=== PATIENT | female | born 1960 | race Two or more races ===

== ENCOUNTER 2025-05-23 11:36 | Inpatient (IN) | payer MEDICARE, MEDICAID ==
[~2025-05-23] VITALS: Ht 149.9 cm; Wt 66.8 kg
--- NOTE | 2025-05-23 12:01 | ED.PDOC ---
HPI Comments This is a 65 year-old female who presents to the ED via EMS with a chief complaint of L sided chest pain, palpitations, and generalized body pain. Patient states symptoms are similar as to when she was diagnosed with Pneumonia in March. Patient has a Hx of COPD and HTN. Patient has no further complaints or modifying factors at this time. Patient denies any fever, chills, SOB, cough, or N/V/D. 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 History Family History Family History: Unknown Social History Smoker: Non-Smoker Alcohol: Denies ETOH Use Drugs: Denies Drug Use Lives In: Home Constitutional: reports: others (body pain ); denies: chills, diaphoresis, fatigue, fever, malaise, sweats, weakness EENTM: denies: blurred vision, double vision, ear bleeding, ear discharge, ear drainage, ear pain, ear ringing, eye pain, eye redness, hearing loss, mouth pain, mouth swelling, nasal discharge, nose bleeding, nose congestion, nose pain, photophobia, tearing, throat pain, throat swelling, voice changes, others Respiratory: denies: cough, hemoptysis, orthopnea, SOB at rest, shortness of breath, SOB with excertion, stridor, wheezing, others Cardiovascular: reports: chest pain, palpitations; denies: dizzy spells, diaphoresis, Dyspnea on exertion, edema, irregular heart beat, left arm pain, lightheadedness, PND, syncope, others Gastrointestinal: denies: abdomen distended, abdominal pain, blood streaked bowels, constipated, diarrhea, dysphagia, difficulty swallowing, hematemesis, melena, nausea, poor appetite, poor fluid intake, rectal bleeding, rectal pain, vomiting, others Genitourinary: denies: abnormal vagina bleeding, burning, dyspareunia, dysuria, flank pain, frequency, hematuria, incontinence, pain, , vagina discharge, urgency, others Neurological: denies: dizziness, fainting, headache, left sided numbness, left sided weakness, numbness, paresthesia, pre-existing deficit, right sided numbness, right sided weakness, seizure, speech problems, tingling, tremors, weakness, others Musculoskeletal: denies: back pain, gout, joint pain, joint swelling, muscle pa in, muscle stiffness, neck pain, others Integumetry: denies: bruises, change in color, change in hair/nails, dryness, laceration, lesions, lumps, rash, wounds, others Allergic/Immunocompromised: denies: Difficulty Healing, Frequent Infections, Hives, Itching, others Hematologic/Lymphatic: denies: anemia, blood clots, easy bleeding, easy bruising, swollen glands, others Endocrine: denies: excessive hunger, excessive sweating, excessive thirst, excessive urination, flushing, intolerance to cold, intolerance to heat, unexplained weight gain, unexplained weight loss, others Psychiatric: denies: anxiety, bipolar disorder, depression, hopeless, panic disorder, schizophrenia, sleepless, suicidal, others All Other Systems: Reviewed and Negative Physical Exam General Appearance: Moderate Distress HEENT: Normal ENT Inspection, Pharynx Normal, TMs Normal Neck: Full Range of Motion, Non-Tender, Normal, Normal Inspection Respiratory: Chest Non-Tender, Lungs Clear, No Accessory Muscle Use, No Respiratory Distress, Normal Breath Sounds Cardiovascular: No Edema, No JVD, No Murmur, No Gallop, Normal Peripheral Pulses, Regular Rate/Rhythm Breast Exam: Deferred Gastrointestinal: No Organomegaly, Non Tender, No Pulsatile Mass, Normal Bowel Sounds, Soft Genitalia: Deferred Pelvic: Deferred Rectal: Deferred Extremities: No calf tenderness, Normal capillary refill, Normal inspection, Normal range of motion, Non-tender, No pedal edema Musculoskeletal : Apperance: Normal Neurologic: Alert, assistant inventory manager II-XII nml as Tested, No Motor Deficits, Normal Affect, Normal Mood, No Sensory Deficits Cerebellar Function: NOT DONE Reflexes: NOT DONE Skin: Dry, Normal Color, Warm Peripheral Pulses: 3+ Radial (R), 3+ Radial (L) Lymphatic: No Adenopathy Was a procedure done? Was a procedure done?: No CP Differential Dx Differential Diagnosis: A-fib, A-Flutter, Angina, Anxiety / Panic Attack, Atrial Dysrhythmia, Electrolyte Disorder Differential Diagnosis: HTN Essential Differential Diagnosis: Angina, Chest Wall Pain, Gastritis, Pneumonia X-Ray, Labs, Meds, VS Vital Signs Date Time Temp Pulse Resp B/P (MAP) Pulse Ox O2 Delivery O2 Flow Rate FiO2 05/23/25 11:40 84 Lab Test 05/23/25 13:59 Range/Units White Blood Count 6.6 4.4-10.8 10^3/uL Red Blood Count 4.55 4.0-5.20 10^6/uL Hemoglobin 14.3 12.2-16.2 g/dL Hematocrit 42.2 36.0-46.0 % Mean Corpuscular Volume 92.6 80.0-100.0 fL Mean Corpuscular Hemoglobin 31.4 28.0-32.0 pg Mean Corpuscular Hemoglobin Concent 33.9 32.0-36.0 g/dL Red Cell Distribution Width 14.3 11.8-14.3 % Platelet Count 116 L 140-450 10^3/uL Mean Platelet Volume 9.5 6.9-10.8 fL Neutrophils (%) (Auto) 64.8 37.0-80.0 % Lymphocytes (%) (Auto) 19.6 10.0-50.0 % Monocytes (%) (Auto) 9.6 0.0-12.0 % Eosinophils (%) (Auto) 5.5 0.0-7.0 % Basophils (%) (Auto) 0.5 0.0-2.0 % Neutrophils # (Auto) 4.3 1.6-8.6 10 ^3/uL Lymphocytes # (Auto) 1.3 0.4-5.4 10 ^3/uL Monocytes # (Auto) 0.6 0-1.3 10 ^3/uL Eosinophils # (Auto) 0.4 0-0.8 10 ^3/uL Basophils # (Auto) 0 0-0.2 10 ^3/uL Nucleated Red Blood Cells 0.1 % Sodium Level 143 136-145 mmol/L Potassium Level 4.3 3.5-5.1 mmol/L Chloride Level 113 H 98-107 mmol/L Carbon Dioxide Level 25 20-31 mmol/L Anion Gap 5 5-15 Blood Urea Nitrogen 12 9-23 mg/dL Creatinine 0.85 0.550-1.02 mg/dL Glomerular Filtration Rate Calc 76 >90 mL/min BUN/Creatinine Ratio 14.1 10.0-20.0 Serum Glucose 98 74-106 mg/dL Calcium Level 9.2 8.7-10.4 mg/dL Troponin I High Sensitivity 7 </=34 ng/L Patient alert. Came in because of chest pain. Vitals stable. Answering questions. Cardiac marker within normal limits. Continues to have chest pain. WBC within normal limits pain Hemoglobin within normal limits. Explained to the patient. Continue to monitor. Time of 1ST Reevaluation: 12:31 Reevaluation 1ST: Unchanged Patient Education/Counseling: Diagnosis, Treatment Family Education/Counseling: No Family Present SEPSIS Sepsis Screen Physician Orders Electrocardigram (05/23/25 12:01) Electrocardigram (05/23/25 13:01) Electrocardigram (05/23/25 15:01) Chest Portable (05/23/25 13:49) Urinalysis (05/23/25 13:49) Vital Signs Date Time Temp Pulse Resp B/P (MAP) Pulse Ox O2 Delivery O2 Flow Rate FiO2 05/23/25 11:40 84 Laboratory Tests Test 05/23/25 13:59 White Blood Count 6.6 10^3/uL (4.4-10.8) Departure 1 Departure Time of Disposition: 16:05 Impression: Primary Impression: Chest pain of unknown etiology Disposition: ADMITTED INPATIENT Admit to: Med Surg Condition: Guarded Critical Care Note Critical Care Time?: Yes (30 min-critical care time only) Stability Stability form required: No Heart Score Heart Score: Heart Score Response (Comments) Value History Moderate Suspicious 1 EKG N/A 0 Age >65 2 Risk Factors 1 or 2 risk factors 1 Troponin Normal limit 0 Total 4 I personally scribed for TWIN JONES MD ([email or web address]) on 05/23/25 at 12:01. Electronically submitted by Ghazal Stafford ([employer] TWIN JONES MD May 23, 2025 12:01
[2025-05-23 14:12] LABS: Hematocrit 42.2 % (36.0-46.0); Hemoglobin 14.3 g/dL (12.2-16.2); Mean Corpuscular Hemoglobin 31.4 pg (28.0-32.0); Mean Corpuscular Volume 92.6 fL (80.0-100.0); Nucleated Red Blood Cells % 0.1 %
[2025-05-23 14:17] LABS: Potassium 4.3 mmol/L (3.5-5.1); Sodium 143 mmol/L (136-145)
[2025-05-23 14:18] LABS: Anion Gap 5 (5-15); Carbon Dioxide 25 mmol/L (20-31)
[2025-05-23 14:19] LABS: Calcium 9.2 mg/dL (8.7-10.4)
[2025-05-23 14:22] LABS: Chloride 113 mmol/L (98-107)
[2025-05-23 14:24] LABS: BUN/Creatinine Ratio 14.1 (10.0-20.0); Blood Urea Nitrogen 12 mg/dL (9-23); Glucose 98 mg/dL (74-106)
--- NOTE | 2025-05-23 14:27 | DVH ---
CHEST RADIOGRAPH Indication: cough Technique: Single frontal view of the chest was obtained. Comparison: None Findings: No focal consolidation. Small right pleural effusion. No pneumothorax. Mildly enlarged cardiomediastinal silhouette. IMPRESSION: Small right pleural effusion.
[2025-05-23] MEDS ORDERED: DOCUSATE SOD 100 MG CAP PO PRN (17:00)
[2025-05-23] MEDS ORDERED: NITROGLYCERIN 0.4 MG SL TAB SL PRN (17:00)
--- NOTE | 2025-05-23 17:17 | DVHHP2 ---
History of Present Illness Reason for Visit: sob/cough History of Present Illness 59-year-old female with a complex past medical history including COPD, hypertension, cirrhosis likely secondary to alcoholism (she reports sobriety for the past 18 years), recently diagnosed liver cancer (diagnosed two weeks ago at [facility]) have not gotten treatment as of yet per pt, thyroid disease, prior stomach and spine surgery, pneumonia in June 2024, and uncertain surgical history, presents with complaints of left-sided abdominal pain, neck pain, shoulder pain, chest pain, shortness of breath, and cough ongoing for three days. She notes the current symptoms feel similar to prior pneumonia episodes but denies fever. She is an active smoker and denies any recent alcohol intake. She lives in a facility with her son. Patient has limited recall of her medical and surgical history. She was brought in via paramedics and evaluated in the ED where she remained in the lobby in a wheelchair. Pulse oximetry on room air was 93%, heart rate 93 bpm. CBC was unremarkable. BMP was remarkable. Chest X-ray revealed a right pleural effusion. Given the constellation of symptoms, she will be admitted for further workup including COPD exacerbation, pneumonia rule-out, pulmonary embolism rule-out, and evaluation of abdominal pain. Past Medical History see hpi above Past Surgical History see hpi above Family History Reviewed, non-contributory to the management of this case. Past Social History Patient does smoke by history denies any recent alcohol use or drug use Review of Systems Constitutional: No: Fever, Chills, Sweats, Weakness, Malaise, Other Eyes: No: Pain, Vision change, Conjunctivae inflammation, Eyelid inflammation, Other, Redness ENT: No: Ear pain, Ear discharge, Nose pain, Nose discharge, Nose congestion, Mouth pain, Mouth swelling, Throat pain, Throat swelling, Other Respiratory: Cough, Shortness of breath, SOB with excertion; No: Dry, Wheezing, Hemoptysis, Pleuritic Pain, Sputum, Wheezing, Other Cardiovascular: Chest Pain; No: Palpitations, Orthopnea, Paroxysmal Noc. Dyspnea, Edema, Lt Headedness, Other Gastrointestinal: No: Nausea, Vomiting, Abdominal Pain, Diarrhea, Constipation, Melena, Hematochezia, Other Genitourinary: No Dysuria, No Frequency, No Incontinence, No Hematuria, No Retention, No Other Musculoskeletal: No: other, neck pain, shoulder pain, arm pain, back pain, hand pain, leg pain, foot pain Skin: No: Rash, Lesions, Jaundice, Bruising, Other Neurological: No: Weakness, Numbness, Incoordination, Change in speech, Confusion, Seizures, Other Allergies: Coded Allergies: NO KNOWN ALLERGIES (Unverified , 05/23/25) Exam Vital Signs Vital Signs Date Time Temp Pulse Resp B/P (MAP) Pulse Ox O2 Delivery O2 Flow Rate FiO2 05/23/25 11:40 84 General Appearance: Alert, Oriented X3, Cooperative, mild distress HEENT: Atraumatic, PERRLA, EOMI, Mucous membr. moist/pink Respiratory: Other (diminished throughout ) Cardiovascular: Regular rate, Normal S1, Normal S2, No murmurs Abdominal: Normal bowel sounds, Soft, No tenderness, No hepatospenomegaly, No masses Extremities: No clubbing, No cyanosis, No edema, Normal pulses, No tenderness/swelling Skin: No rashes, No breakdown, No significant lesion Neuro: Other (neuro non focal ) Labs/Xrays Chest x-ray shows right pleural effusion I reviewed labs, imaging CT scan abdomen pelvis, EKG and all diagnostic studies on this patient from ED records and the medical chart Labs Test 05/23/25 13:59 Range/Units White Blood Count 6.6 4.4-10.8 10^3/uL Red Blood Count 4.55 4.0-5.20 10^6/uL Hemoglobin 14.3 12.2-16.2 g/dL Hematocrit 42.2 36.0-46.0 % Mean Corpuscular Volume 92.6 80.0-100.0 fL Mean Corpuscular Hemoglobin 31.4 28.0-32.0 pg Mean Corpuscular Hemoglobin Concent 33.9 32.0-36.0 g/dL Red Cell Distribution Width 14.3 11.8-14.3 % Platelet Count 116 L 140-450 10^3/uL Mean Platelet Volume 9.5 6.9-10.8 fL Neutrophils (%) (Auto) 64.8 37.0-80.0 % Lymphocytes (%) (Auto) 19.6 10.0-50.0 % Monocytes (%) (Auto) 9.6 0.0-12.0 % Eosinophils (%) (Auto) 5.5 0.0-7.0 % Basophils (%) (Auto) 0.5 0.0-2.0 % Neutrophils # (Auto) 4.3 1.6-8.6 10 ^3/uL Lymphocytes # (Auto) 1.3 0.4-5.4 10 ^3/uL Monocytes # (Auto) 0.6 0-1.3 10 ^3/uL Eosinophils # (Auto) 0.4 0-0.8 10 ^3/uL Basophils # (Auto) 0 0-0.2 10 ^3/uL Nucleated Red Blood Cells 0.1 % Sodium Level 143 136-145 mmol/L Potassium Level 4.3 3.5-5.1 mmol/L Chloride Level 113 H 98-107 mmol/L Carbon Dioxide Level 25 20-31 mmol/L Anion Gap 5 5-15 Blood Urea Nitrogen 12 9-23 mg/dL Creatinine 0.85 0.550-1.02 mg/dL Glomerular Filtration Rate Calc 76 >90 mL/min BUN/Creatinine Ratio 14.1 10.0-20.0 Serum Glucose 98 74-106 mg/dL Calcium Level 9.2 8.7-10.4 mg/dL Troponin I High Sensitivity 7 </=34 ng/L SEPSIS Sepsis Screen Physician Orders Electrocardigram (05/23/25 12:01) Electrocardigram (05/23/25 13:01) Electrocardigram (05/23/25 15:01) Chest Portable (05/23/25 13:49) Urinalysis (05/23/25 13:49) Hydrocodone-Acet 5/325mg Tab ([place] 5/32 (05/23/25 17:00) Vital Signs Date Time Temp Pulse Resp B/P (MAP) Pulse Ox O2 Delivery O2 Flow Rate FiO2 05/23/25 11:40 84 Laboratory Tests Test 05/23/25 13:59 White Blood Count 6.6 10^3/uL (4.4-10.8) Assessment/Plan Assessment/Plan 59-year-old female with cirrhosis, COPD, and new diagnosis of liver cancer presenting with shortness of breath, cough, and left-sided abdominal and chest pain. Admission for evaluation of COPD exacerbation, pleural effusion, and possible pneumonia or PE. acute COPD Exacerbation acute mild hypoxic resp failure Start nebulized albuterol-ipratropium q4h IV steroids Solu-Medrol 125mg x1 then 40 mg q8h) Prophylactic antibiotics: Ceftriaxone + Azithromycin Oxygen therapy to keep SpO2 >92% Monitor respiratory status and reassess daily acute Pleural Effusion, right-sided on chest X-ray CT chest with contrast (Angio) to rule out PE Monitor oxygen saturation and respiratory exam If large effusion or worsening: consider thoracentesis monitor acute Shortness of breath and chest pain rule out PE/pneumonia/ACS Order CT angiogram chest Trend troponins q6h x 3 EKG done: no ST elevations noted Start telemetry monitoring BNP, D-dimer pending ordered echo fu results Cirrhosis and recently diagnosed liver cancer Order abdominal ultrasound to evaluate for ascites, LFTs, INR, AFP GI and oncology referral to follow-up on recent liver cancer diagnosis on discharge Evaluate for paracentesis if symptomatic ascites present acute Left-sided abdominal pain CT abdomen and pelvis with contrast Consider GI consult depending on imaging findings Abdominal ultrasound also ordered chronic problems Hypertension Restart home antihypertensives as tolerated Thyroid disorder unspecified Order TSH and Free T4 COPD Cirrhosis of liver Liver cancer Hypertension Thyroid disease History of alcoholism (in remission) History of pneumonia History of stomach surgery History of spine surgery FEN / PPx Fluids: IV NS at 75 mL/hr, Electrolytes: Monitor BMP Nutrition: Regular diet DVT Prophylaxis: Enoxaparin 40 mg SC daily GI Prophylaxis: protonix Disposition Admit to internal medicine for further evaluation and management of COPD exacerbation, pleural effusion, and abdominal pain. Imaging and labs are pending to rule out PE and evaluate liver disease. coordinate with oncology and GI for liver cancer follow-up and assess for need of further procedures. Plan discussed with: Patient My Orders Orders - PAMELA STEINBERG DNP Procedure Category Date Status Time Hydrocodone-Acet PHA 05/23/25 In Process 5/325mg Tab ([place] 17:00 Date of Service: May 23, 2025 Billing Provider: PAMELA STEINBERG DNP Common Visit Codes: 13801-ACRJOPT INP/OBS CARE (HIGH) PAMELA STEINBERG DNP May 23, 2025 17:17
[2025-05-23] MEDS: HYDROcodone-ACET 5/325MG TAB PO ONE (17:21)
[2025-05-23] MEDS: methylPREDNISolone SOD SUCC 125 MG/2 ML VL IV ONE (17:43)
[2025-05-23] MEDS: ALBUTEROL SULF 2.5 MG/0.5ML(0.5%) NEB SOLN NEB ONE (17:45)
[2025-05-23] MEDS: IPRATROPIUM BROM 0.5 MG/2.5ML INH SOL NEB ONE (17:45)
[2025-05-23] MEDS: PANTOPRAZOLE 40 MG/10 ML VIAL INJ IV ONE (17:46)
[2025-05-23] MEDS: AZITHROMYCIN 500MG/250ML 250 ML IV ONE (18:31)
--- NOTE | 2025-05-23 18:33 | DVH ---
ULTRASOUND ABDOMEN, LIMITED RIGHT UPPER QUADRANT: REASON FOR EXAM: dx of liver cancer. eval for ascites with abd pain TECHNIQUE: Real-time sector scans in the transverse and longitudinal planes were obtained through the right upper quadrant of the abdomen. FINDINGS: The liver is of normal size and contour. There is hepatopetal flow in the portal vein. There is no intrahepatic biliary ductal dilatation. The common bile duct measures 3 mm. No gallstones or sludge are identified. There is no gallbladder wall thickening nor pericholecystic fluid. There is no sonographic Suero's sign. The visualized portion of the pancreas is unremarkable. The right kidney measures 9.4 cm. No hydronephrosis or nephrolithiasis is identified. There is no evidence of right renal mass or cyst. The visualized portions of the abdominal aorta demonstrate no evidence of aneurysmal dilatation. The visualized inferior vena cava is unremarkable. There is no free fluid identified in the right upper quadrant. IMPRESSION: No hepatic mass is identified. No ascites identified.
[2025-05-23] MEDS: ONDANSETRON HCL 4 MG/2 ML VIAL IV PRN (19:18)
[2025-05-23] MEDS: HYDROmorphone HCL 2 MG/ML VL/or syr IV PRN (19:19)
[2025-05-23] MEDS: IOHEXOL 350 MG/ML 100ML IJ ONE (19:19)
[2025-05-23 20:00] VITALS: BP 163/106; PULSE 89; RESP 17; TEMP 98.6; O2SAT 97
[2025-05-23] MEDS: methylPREDNISolone SOD SUCC 40 MG/ML VL IV SCH (22:00)
[2025-05-23 22:50] LABS: Urine Protein, UAD TRACE (Negative)
[2025-05-23] MEDS: hydrALAZINE HCL 20 MG/ML VL IV PRN (23:06)
[2025-05-23 23:58] VITALS: BP 128/74; PULSE 104; RESP 18; TEMP 98.4; O2SAT 94
[2025-05-24] VITALS (13 sets, daily range): BP systolic 114–181; BP diastolic 60–98; PULSE 85–100; RESP 16–18; TEMP 97.8–98.5; O2SAT 91–100
--- NOTE | 2025-05-24 00:04 | DVH ---
Exam: CT CT CHEST/AB/PL W CON- IV ONLY History: eval for acute abd pain/ r/o pe angio chest Comparison Study: XY CHEST PORTABLE on DOS: 05/23/25 Technique: Multidetector spiral CT of the chest, abdomen and pelvis was performed from lower neck to pubic symphysis. Intravenous contrast was administered during this examination. Pulmonary arterial phase and portal venous phase imaging was obtained. Axial, coronal and sagittal multiplanar reformats were performed by the technologist on a separate workstation. MIP reformats also performed. Radiation Dose : 1. Abdomen/Pelvis: CTDIvol 8.38mGy, DLP 1528.49 mGy*cm. CONTRAST: Type of contrast: Omnipaque 350 Contrast injected: 100 ml Findings: Lower neck: Normal thyroid. Lungs: Central airways patent. Moderate centrilobular emphysema. Spiculated left upper lobe pulmonary nodule anteriorly abutting the major fissure measuring 1.5 x 1.0 cm. No other discrete suspect lung lesion. Heart/Vascular Structures: Normal heart size. No pericardial effusion. Coronary calcifications. No pulmonary embolus. Lymph Nodes: No adenopathy Pleura: No pleural effusion or significant pneumothorax. Liver: Cirrhotic in appearance. Few scattered probable cysts or hemangiomas although these are poorly assessed on this study. Multiple splenic varices. Gallbladder and Biliary Tree: Cholelithiasis noted without secondary findings of cholecystitis or biliary obstruction. Spleen: Unremarkable Pancreas: The pancreas is normal in appearance without focal lesions or abnormal enhancement. Adrenal Glands: Unremarkable Kidneys: Kidneys demonstrate normal symmetric enhancement without focal lesions, calculi or hydronephrosis. Bladder: Unremarkable Bowel: The stomach is grossly normal in appearance. Small bowel and colon are normal in caliber and distribution. The appendix is not visualized; however, no secondary findings of acute appendicitis identified. Ascites: Absent Lymphadenopathy: No mesenteric, retroperitoneal or periportal lymphadenopathy. Abdominal Wall and Mesentery: Unremarkable. Vasculature: The visualized abdominal aorta is normal in size and caliber. Abdominal and pelvic vessels demonstrate normal enhancement. Pelvic Organs: Unremarkable Musculoskeletal: No aggressive focal bony lesions, acute fractures or dislocation. Upper thoracic kyphosis with fusion of the T3-T6 vertebral bodies. IMPRESSION: No pulmonary embolus. Spiculated left upper lobe pulmonary nodule. The diagnosis of exclusion is malignancy. Suggest either further assessment with PET/ CT or tissue sampling. No clear cause for abdominal pain.
[2025-05-24] MEDS: HYDROmorphone HCL 2 MG/ML VL/or syr IV PRN (00:29)
[2025-05-24 03:49] LABS: Hematocrit 43.0 % (36.0-46.0); Hemoglobin 14.5 g/dL (12.2-16.2); Mean Corpuscular Hemoglobin 31.8 pg (28.0-32.0); Mean Corpuscular Volume 94.4 fL (80.0-100.0); Nucleated Red Blood Cells % 0.2 %
[2025-05-24 04:03] LABS: Albumin 4.1 g/dL (3.2-4.8); Anion Gap 9 (5-15); BUN/Creatinine Ratio 17.8 (10.0-20.0); Bilirubin, Total 0.6 mg/dL (0.2-1.0); Blood Urea Nitrogen 18 mg/dL (9-23); Calcium 9.1 mg/dL (8.7-10.4); Carbon Dioxide 25 mmol/L (20-31); Potassium 4.6 mmol/L (3.5-5.1); Sodium 143 mmol/L (136-145); Total Protein 7.9 g/dL (5.7-8.2)
[2025-05-24 04:27] LABS: Alanine Aminotransferase 48 U/L (7-40); Alkaline Phosphatase 212 U/L (46-116); Chloride 109 mmol/L (98-107); Glucose 229 mg/dL (74-106)
[2025-05-24] MEDS: AZITHROMYCIN 500MG/250ML 250 ML IV SCH (10:00)
[2025-05-24] MEDS: PANTOPRAZOLE 40 MG/10 ML VIAL INJ IV SCH (10:18)
[2025-05-24] MEDS: ENOXAPARIN SOD 40 MG/0.4 ML SYRINGE SC SCH (10:19)
[2025-05-24] MEDS: IPRATROPIUM BROM 0.5 MG/2.5ML INH SOL NEB PRN (19:40)
[2025-05-24] MEDS: ALBUTEROL SULF 2.5 MG/0.5ML(0.5%) NEB SOLN NEB PRN (19:40)
--- NOTE | 2025-05-24 23:34 | DVHPN2 ---
Reviewed: Care Plan, H&P, Labs, Medications, Previous Orders, Radiology Changes from previous H/P or p: No Changes General: Per HPI Eyes: No Pain, No Vision change, No Conjunctivae inflammation, No Eyelid inflammation, No Other, No Redness ENT: No Ear pain, No Ear discharge, No Nose pain, No Nose discharge, No Nose congestion, No Mouth pain, No Mouth swelling, No Throat pain, No Throat swelling, No Other Cardiovascular: Chest Pain; No Palpitations, No Orthopnea, No Paroxysmal Noc. Dyspnea, No Edema, No Lt Headedness, No Other Respiratory: Cough; No Dry; Shortness of breath, SOB with excertion; No Wheezing, No Hemoptysis, No Pleuritic Pain, No Sputum, No Other Gastrointestinal: No Nausea, No Vomiting, No Abdominal Pain, No Diarrhea, No Constipation, No Melena, No Hematochezia, No Other Genitourinary: No Dysuria, No Frequency, No Incontinence, No Hematuria, No Retention, No Other Musculoskeletal: No other, No neck pain, No shoulder pain, No arm pain, No back pain, No hand pain, No leg pain, No foot pain Skin: No Rash, No Lesions, No Jaundice, No Bruising, No Other Objective Vitals Vital Signs Date Time Temp Pulse Resp B/P (MAP) Pulse Ox O2 Delivery O2 Flow Rate FiO2 05/24/25 22:26 100 149/92 (111) 05/24/25 21:00 98.1 18 92 98.1 05/24/25 20:00 Room Air* 0 21 Intake/Output Intake and Output 05/24/25 07:00 Intake Total 1008 ml Balance 1008 ml Intake Oral 708 ml IV Total 300 ml # Voids 1 General Appearance: Alert, Oriented X3, Cooperative Cardiovascular: Regular rate, Normal S1 Neuro: Normal gait, Normal speech Medications Current Medications Medications Dose Ordered Sig/Jatinder Route Start Time Stop Time Status Last Admin Dose Admin Albuterol 2.5 mg Q4HPRN PRN NEB 05/23/25 17:00 05/24/25 19:40 2.5 MG Ipratropium [place] 0.5 mg Q4HPRN PRN NEB 05/23/25 17:00 05/24/25 19:40 0.5 MG Methylprednisolone Sodium Succinate 40 mg Q8HR IV 05/23/25 22:00 05/24/25 21:52 40 MG Hydromorphone HCl 0.25 mg Q4HPRN PRN IV 05/23/25 17:00 05/24/25 10:18 0.25 MG Hydromorphone HCl 0.5 mg Q4HPRN PRN IV 05/23/25 17:00 05/24/25 20:51 0.5 MG Temazepam 15 mg QHSP PRN PO 05/23/25 17:00 Ondansetron HCl 4 mg Q4HP PRN IV 05/23/25 17:00 05/23/25 19:18 4 MG Docusate Sodium 100 mg BIDPRN PRN PO 05/23/25 17:00 Enoxaparin Sodium 40 mg DAILY SC 05/24/25 10:00 05/24/25 10:19 40 MG Nitroglycerin 0.4 mg Q5MINP PRN SL 05/23/25 17:00 Pantoprazole Sodium 40 mg DAILY IV 05/24/25 10:00 05/24/25 10:18 40 MG Ceftriaxone Sodium 50 ml @ 100 mls/hr DAILY@09 IV 05/24/25 09:00 05/24/25 10:16 100 MLS/HR Azithromycin 250 ml @ 125 mls/hr DAILY IV 05/24/25 10:00 05/24/25 10:00 125 MLS/HR Hydralazine HCl 10 mg Q6HP PRN IV 05/23/25 22:30 05/24/25 21:54 10 MG Laboratory Results Laboratory Tests 05/24/25 03:09 Chemistry Test 05/24/25 03:09 Albumin 4.1 g/dL (3.2-4.8) Calcium Level 9.1 mg/dL (8.7-10.4) Total Protein 7.9 g/dL (5.7-8.2) LFT Test 05/24/25 03:09 Alanine Aminotransferase (ALT) 48 U/L (7-40) H Alkaline Phosphatase 212 U/L (46-116) H Aspartate Amino Transferase (AST) 90 U/L (13-40) H Total Bilirubin 0.6 mg/dL (0.2-1.0) Urinalysis Test 05/23/25 17:57 Urine Color Light-yellow (Yellow) Urine Clarity Clear (Clear) Urine pH 6.0 (5.0-9.0) Urine Specific [place] 1.035 (1.001-1.035) Urine Protein Trace (Negative) H Urine Ketones Negative (Negative) Urine Blood Trace /uL (Negative) H Urine Nitrite Negative (Negative) Urine Bilirubin Negative (Negative) Urine Urobilinogen Normal mg/dL (Negative) Urine Leukocyte Esterase Negative /uL (Negative) Urine RBC 1 /hpf (0 - 4) Urine Microscopic WBC < 1 /HPF (0-5) Urine Squamous Epithelial Cells Few /hpf (<5) Urine Bacteria None seen /hpf (None Seen) Urine Mucus Few (None Seen) Urine Glucose Normal mg/dL (Normal) Labs and/or images reviewed: Labs reviewed by me, Image(s) reviewed by me Assessment/Plan Assessment/Plan 59-year-old female with a complex past medical history including COPD, hypertension, cirrhosis likely secondary to alcoholism (she reports sobriety for the past 18 years), recently diagnosed liver cancer (diagnosed two weeks ago at [facility]) have not gotten treatment as of yet per pt, thyroid disease, prior stomach and spine surgery, pneumonia in June 2024, and uncertain surgical history, presents with complaints of left-sided abdominal pain, neck pain, shoulder pain, chest pain, shortness of breath, and cough ongoing for three days. She notes the current symptoms feel similar to prior pneumonia episodes but denies fever. She is an active smoker and denies any recent alcohol intake. She lives in a facility with her son. Patient has limited recall of her medical and surgical history. She was brought in via paramedics and evaluated in the ED where she remained in the lobby in a wheelchair. Pulse oximetry on room air was 93%, heart rate 93 bpm. CBC was unremarkable. BMP was remarkable. Chest X-ray revealed a right pleural effusion. Given the constellation of symptoms, she will be admitted for further workup including COPD exacerbation, pneumonia rule-out, pulmonary embolism rule-out, and evaluation of abdominal pain. 59-year-old female with cirrhosis, COPD, and new diagnosis of liver cancer presenting with shortness of breath, cough, and left-sided abdominal and chest pain. Admission for evaluation of COPD exacerbation, pleural effusion, and possible pneumonia or PE. acute COPD Exacerbation acute hypoxic resp failure acute Pleural Effusion, right-sided acute Shortness of breath and chest pain rule out PE/pneumonia/ACS Cirrhosis and recently diagnosed liver cancer acute Left-sided abdominal pain Hypertension Restart home antihypertensives as tolerated Thyroid disorder unspecified Order TSH and Free T4 COPD Cirrhosis of liver Liver cancer Hypertension Thyroid disease History of alcoholism (in remission) History of pneumonia History of stomach surgery History of spine surgery 05/24/2025 improving significantly possible d/c within 24 hours Plan discussed with: Patient Date of Service: May 24, 2025 Billing Provider: PATSY PENG DO Common Visit Codes: [id number] INP/OBS CARE(HIGH) PATSY PENG DO May 24, 2025 23:34
[2025-05-25] VITALS (9 sets, daily range): BP systolic 101–151; BP diastolic 74–99; PULSE 74–94; RESP 18–20; TEMP 97.5–99.3; O2SAT 91–95
[2025-05-25] MEDS: TEMAZEPAM 15 MG CAP PO PRN (01:18)
--- NOTE | 2025-05-25 13:21 | DVHPN2 ---
Reviewed: Care Plan, H&P, Labs, Medications, Previous Orders, Radiology Changes from previous H/P or p: No Changes General: Per HPI Eyes: No Pain, No Vision change, No Conjunctivae inflammation, No Eyelid inflammation, No Other, No Redness ENT: No Ear pain, No Ear discharge, No Nose pain, No Nose discharge, No Nose congestion, No Mouth pain, No Mouth swelling, No Throat pain, No Throat swelling, No Other Cardiovascular: Chest Pain; No Palpitations, No Orthopnea, No Paroxysmal Noc. Dyspnea, No Edema, No Lt Headedness, No Other Respiratory: Cough; No Dry; Shortness of breath, SOB with excertion; No Wheezing, No Hemoptysis, No Pleuritic Pain, No Sputum, No Other Gastrointestinal: No Nausea, No Vomiting, No Abdominal Pain, No Diarrhea, No Constipation, No Melena, No Hematochezia, No Other Genitourinary: No Dysuria, No Frequency, No Incontinence, No Hematuria, No Retention, No Other Musculoskeletal: No other, No neck pain, No shoulder pain, No arm pain, No back pain, No hand pain, No leg pain, No foot pain Skin: No Rash, No Lesions, No Jaundice, No Bruising, No Other Objective Vitals Vital Signs Date Time Temp Pulse Resp B/P (MAP) Pulse Ox O2 Delivery O2 Flow Rate FiO2 05/25/25 10:16 92 Room Air* 0 21 05/25/25 10:00 83 18 127/85 05/25/25 09:00 98.2 98.2 Intake/Output Intake and Output 05/25/25 07:00 Intake Total 240 ml Output Total 1 ml Balance 239 ml Intake Oral 240 ml Output Stool Total 1 ml # Voids 15 General Appearance: Alert, Oriented X3, Cooperative Cardiovascular: Regular rate, Normal S1 Neuro: Normal gait, Normal speech Medications Current Medications Medications Dose Ordered Sig/Jtainder Route Start Time Stop Time Status Last Admin Dose Admin Albuterol 2.5 mg Q4HPRN PRN NEB 05/23/25 17:00 05/24/25 19:40 2.5 MG Ipratropium [place] 0.5 mg Q4HPRN PRN NEB 05/23/25 17:00 05/24/25 19:40 0.5 MG Methylprednisolone Sodium Succinate 40 mg Q8HR IV 05/23/25 22:00 05/25/25 05:39 40 MG Hydromorphone HCl 0.25 mg Q4HPRN PRN IV 05/23/25 17:00 05/25/25 06:14 0.25 MG Hydromorphone HCl 0.5 mg Q4HPRN PRN IV 05/23/25 17:00 05/25/25 10:00 0.5 MG Temazepam 15 mg QHSP PRN PO 05/23/25 17:00 05/25/25 01:18 15 MG Ondansetron HCl 4 mg Q4HP PRN IV 05/23/25 17:00 05/23/25 19:18 4 MG Docusate Sodium 100 mg BIDPRN PRN PO 05/23/25 17:00 Enoxaparin Sodium 40 mg DAILY SC 05/24/25 10:00 05/25/25 10:02 40 MG Nitroglycerin 0.4 mg Q5MINP PRN SL 05/23/25 17:00 Pantoprazole Sodium 40 mg DAILY IV 05/24/25 10:00 05/25/25 10:01 40 MG Ceftriaxone Sodium 50 ml @ 100 mls/hr DAILY@09 IV 05/24/25 09:00 05/25/25 10:00 100 MLS/HR Azithromycin 250 ml @ 125 mls/hr DAILY IV 05/24/25 10:00 05/25/25 10:01 125 MLS/HR Hydralazine HCl 10 mg Q6HP PRN IV 05/23/25 22:30 05/24/25 21:54 10 MG Laboratory Results Laboratory Tests 05/24/25 03:09 Urinalysis Test 05/23/25 17:57 Urine Color Light-yellow (Yellow) Urine Clarity Clear (Clear) Urine pH 6.0 (5.0-9.0) Urine Specific [place] 1.035 (1.001-1.035) Urine Protein Trace (Negative) H Urine Ketones Negative (Negative) Urine Blood Trace /uL (Negative) H Urine Nitrite Negative (Negative) Urine Bilirubin Negative (Negative) Urine Urobilinogen Normal mg/dL (Negative) Urine Leukocyte Esterase Negative /uL (Negative) Urine RBC 1 /hpf (0 - 4) Urine Microscopic WBC < 1 /HPF (0-5) Urine Squamous Epithelial Cells Few /hpf (<5) Urine Bacteria None seen /hpf (None Seen) Urine Mucus Few (None Seen) Urine Glucose Normal mg/dL (Normal) Labs and/or images reviewed: Labs reviewed by me, Image(s) reviewed by me Assessment/Plan Assessment/Plan Covering for Dr. Victoria Acute hypoxic respiratory failure: Oxygen by nasal cannula Acute COPD Exacerbation Possible community-acquired pneumonia Gram-positive versus Gram-negative: Rocephin azithromycin albuterol Atrovent Acute mild right pleural effusion PE ruled out Cirrhosis and recently diagnosed liver cancer acute Left-sided abdominal pain Hypertension Restart home antihypertensives as tolerated TSH normal Cirrhosis of liver Liver cancer Hypertension Thyroid disease History of alcohol abuse Time spent 70 minutes Advanced care planning time 20 minutes Patient is full code Plan discussed with: Patient Date of Service: May 25, 2025 Billing Provider: GUILLE HERRMANN MD Common Visit Codes: [id number] CARE 30-74 MIN GUILLE HERRMANN MD May 25, 2025 13:21
--- NOTE | 2025-05-25 14:31 | DVHSR ---
APPROVED REPORT EXAM: Two-dimensional and M-mode echocardiogram with Doppler and color Doppler. Blood Pressure: 127/82 mmHg INDICATION Evaluate for cardiac function and EF. RISK FACTORS Height: 4'11, Weight: 150 DIMENSIONS LVDd 4.3 (3.8-5.7cm) LA (2D) 3.9 (1.9-4.0cm) Aortic Root 2.7 (2.0-3.7cm) LVDs 2.9 (2.5-4.0cm) LA (MM) (1.9-4.0cm) Aortic Cusp Exc 0.7 (1.5-2.0cm) EF (%) 63.0 (55-70%) Rt. Atrium 4.0 (1.9-4.0cm) Asc. Aorta 2.8 cm IVSd 1.8 (0.7-1.1cm) RV (D) (1.8-2.4cm) PWd 1.0 (0.7-1.1cm) Mitral Valve Mitral Mitral Stenosis E wave 0.68m/s MV Mean GR. mmHg A wave 1.28m/s MV Peak GR. mmHg E/A ratio 0.5 2D MVA cm2 DECEL Time 90ms PRESS 1/2 Time ms Aortic Valve Aortic Valve Aortic Stenosis V1 1.10m/s AO Mean GR. 26mmHg V2 3.12m/s AO Peak GR. 43mmHg LVOT Diameter 2.2 (1.8-2.4cm) Doppler [place] 1.34cm2 2D [place] 0.57cm2 AI P 1/2 Time 577.84ms Pulmonic Valve V2 1.43m/s Tricuspid Valve TR Velocity 2.73m/s RVSP 30mmHg Conclusion lvef 60% severe LVH normal rv function left atrium enlarged sevee aortic valve calcification, moderate ,mean graident of 26 mmhg, trivial pericardial effusion noted
[2025-05-25] MEDS: HYDROmorphone HCL 2 MG/ML VL/or syr IV PRN (17:18)
[2025-05-26] VITALS (9 sets, daily range): BP systolic 101–153; BP diastolic 65–102; PULSE 63–103; RESP 17–20; TEMP 97.9–98.2; O2SAT 91–100
[2025-05-26 06:31] LABS: Hematocrit 41.2 % (36.0-46.0); Hemoglobin 13.6 g/dL (12.2-16.2); Mean Corpuscular Hemoglobin 30.7 pg (28.0-32.0); Mean Corpuscular Volume 93.2 fL (80.0-100.0); Nucleated Red Blood Cells % 0.1 %
--- NOTE | 2025-05-26 10:19 | DVHPN2 ---
Reviewed: Care Plan, H&P, Labs, Medications, Previous Orders, Radiology Changes from previous H/P or p: No Changes General: Per HPI Eyes: No Pain, No Vision change, No Conjunctivae inflammation, No Eyelid inflammation, No Other, No Redness ENT: No Ear pain, No Ear discharge, No Nose pain, No Nose discharge, No Nose congestion, No Mouth pain, No Mouth swelling, No Throat pain, No Throat swelling, No Other Cardiovascular: Chest Pain; No Palpitations, No Orthopnea, No Paroxysmal Noc. Dyspnea, No Edema, No Lt Headedness, No Other Respiratory: Cough; No Dry; Shortness of breath, SOB with excertion; No Wheezing, No Hemoptysis, No Pleuritic Pain, No Sputum, No Other Gastrointestinal: No Nausea, No Vomiting, No Abdominal Pain, No Diarrhea, No Constipation, No Melena, No Hematochezia, No Other Genitourinary: No Dysuria, No Frequency, No Incontinence, No Hematuria, No Retention, No Other Musculoskeletal: No other, No neck pain, No shoulder pain, No arm pain, No back pain, No hand pain, No leg pain, No foot pain Skin: No Rash, No Lesions, No Jaundice, No Bruising, No Other Objective Vitals Vital Signs Date Time Temp Pulse Resp B/P (MAP) Pulse Ox O2 Delivery O2 Flow Rate FiO2 05/26/25 09:34 92 Room Air* 0 21 05/26/25 06:16 69 16 122/84 05/26/25 05:00 98.0 98.0 Intake/Output Intake and Output 05/26/25 07:00 Intake Total 1160 ml Balance 1160 ml Intake Oral 860 ml IV Total 300 ml # Voids 5 General Appearance: Alert, Oriented X3, Cooperative Cardiovascular: Regular rate, Normal S1 Neuro: Normal gait, Normal speech Medications Current Medications Medications Dose Ordered Sig/Jatinder Route Start Time Stop Time Status Last Admin Dose Admin Albuterol 2.5 mg Q4HPRN PRN NEB 05/23/25 17:00 05/24/25 19:40 2.5 MG Ipratropium [place] 0.5 mg Q4HPRN PRN NEB 05/23/25 17:00 05/24/25 19:40 0.5 MG Methylprednisolone Sodium Succinate 40 mg Q8HR IV 05/23/25 22:00 05/26/25 05:38 40 MG Temazepam 15 mg QHSP PRN PO 05/23/25 17:00 05/25/25 21:53 15 MG Ondansetron HCl 4 mg Q4HP PRN IV 05/23/25 17:00 05/23/25 19:18 4 MG Docusate Sodium 100 mg BIDPRN PRN PO 05/23/25 17:00 Enoxaparin Sodium 40 mg DAILY SC 05/24/25 10:00 05/26/25 08:50 40 MG Nitroglycerin 0.4 mg Q5MINP PRN SL 05/23/25 17:00 Pantoprazole Sodium 40 mg DAILY IV 05/24/25 10:00 05/26/25 08:47 40 MG Ceftriaxone Sodium 50 ml @ 100 mls/hr DAILY@09 IV 05/24/25 09:00 05/26/25 08:51 100 MLS/HR Azithromycin 250 ml @ 125 mls/hr DAILY IV 05/24/25 10:00 05/25/25 10:01 125 MLS/HR Hydralazine HCl 10 mg Q6HP PRN IV 05/23/25 22:30 05/24/25 21:54 10 MG Hydromorphone HCl 2 mg Q4HPRN PRN IV 05/25/25 15:45 05/26/25 05:46 2 MG Laboratory Results Laboratory Tests 05/24/25 03:09 05/26/25 05:45 Urinalysis Test 05/23/25 17:57 Urine Color Light-yellow (Yellow) Urine Clarity Clear (Clear) Urine pH 6.0 (5.0-9.0) Urine Specific [place] 1.035 (1.001-1.035) Urine Protein Trace (Negative) H Urine Ketones Negative (Negative) Urine Blood Trace /uL (Negative) H Urine Nitrite Negative (Negative) Urine Bilirubin Negative (Negative) Urine Urobilinogen Normal mg/dL (Negative) Urine Leukocyte Esterase Negative /uL (Negative) Urine RBC 1 /hpf (0 - 4) Urine Microscopic WBC < 1 /HPF (0-5) Urine Squamous Epithelial Cells Few /hpf (<5) Urine Bacteria None seen /hpf (None Seen) Urine Mucus Few (None Seen) Urine Glucose Normal mg/dL (Normal) Labs and/or images reviewed: Labs reviewed by me, Image(s) reviewed by me Assessment/Plan Assessment/Plan Covering for Dr. Victoria Acute hypoxic respiratory failure: Oxygen by nasal cannula Acute COPD Exacerbation, ejection fraction 60% Possible community-acquired pneumonia Gram-positive versus Gram-negative: Rocephin azithromycin albuterol Atrovent Acute mild right pleural effusion PE ruled out Cirrhosis and recently diagnosed liver cancer Acute Left-sided abdominal pain Hypertension TSH normal Cirrhosis of liver Liver cancer Hypertension Thyroid disease History of alcohol abuse Time spent 50 minutes Advanced care planning time 20 minutes Patient is full code Plan discussed with: Patient My Orders Orders - GUILLE HERRMANN MD Procedure Category Date Status Time Hydromorphone PHA 05/25/25 In Process Injection (Dilaudid 15:45 Date of Service: May 26, 2025 Billing Provider: GUILLE HERRMANN MD Common Visit Codes: [id number] INP/OBS CARE(HIGH) GUILLE HERRMANN MD May 26, 2025 10:18
--- NOTE | 2025-05-26 13:18 | DVHINCON2 ---
GI Consult Consult Note GI consult note Date of Consultation: 05/26/2025 Chief Complaint: Liver cancer Referring Physician: Dr. Samuel Herrmann H&P: 65-year-old female admitted with complains of abdominal pain that radiates to her neck and shoulder and back. No nausea vomiting. Denies hematemesis. No melena or red blood in stool. Last BM four days ago. Patient was diagnosed with liver cancer in [place] June 2024 where she had a liver biopsy done. Status post PET scan two weeks ago at [facility] [place]. Patient is a poor historian regarding any oncology care Patient thinks she had EGD and colonoscopy about a year ago Past Medical History: COPD, hypertension, cirrhosis likely secondary to alcoholism, liver cancer, thyroid disease Past Surgical History: Stomach and spine surgery Social History: + smoking, quit drinking ETOH Family History: Father with lung cancer Review of Systems: Constitutional: no fever, chill, weight loss HEENT: no eye pain, no hearing loss, no oral lesion, no scleral icterus Heart: no chest pain, no chest pressure Lung: no cough, no dyspnea with exertion Abdomen: see HPI Physical exam: General: NAD, AAOX3 Chest: lung dykes clear to auscultation Heart: RRR, no murmur Abdomen: non-distended, no tenderness to palpation, +BS Labs: Labs Test 05/26/25 05:45 05/24/25 03:09 05/23/25 19:14 05/23/25 17:57 Range/Units White Blood Count 13.1 #H 4.4-10.8 10^3/uL Red Blood Count 4.42 4.0-5.20 10^6/uL Hemoglobin 13.6 12.2-16.2 g/dL Hematocrit 41.2 36.0-46.0 % Mean Corpuscular Volume 93.2 80.0-100.0 fL Mean Corpuscular Hemoglobin 30.7 28.0-32.0 pg Mean Corpuscular Hemoglobin Concent 33.0 32.0-36.0 g/dL Red Cell Distribution Width 14.4 H 11.8-14.3 % Platelet Count 140 140-450 10^3/uL Mean Platelet Volume 10.1 6.9-10.8 fL Neutrophils (%) (Auto) 91.1 H 37.0-80.0 % Lymphocytes (%) (Auto) 4.9 L 10.0-50.0 % Monocytes (%) (Auto) 4.0 0.0-12.0 % Eosinophils (%) (Auto) 0.0 0.0-7.0 % Basophils (%) (Auto) 0.0 0.0-2.0 % Neutrophils # (Auto) 11.9 H 1.6-8.6 10 ^3/uL Lymphocytes # (Auto) 0.6 0.4-5.4 10 ^3/uL Monocytes # (Auto) 0.5 0-1.3 10 ^3/uL Eosinophils # (Auto) 0 0-0.8 10 ^3/uL Basophils # (Auto) 0 0-0.2 10 ^3/uL Nucleated Red Blood Cells 0.1 % Creatinine 0.81 0.550-1.02 mg/dL Glomerular Filtration Rate Calc 80 >90 mL/min Sodium Level 143 136-145 mmol/L Potassium Level 4.6 3.5-5.1 mmol/L Chloride Level 109 H 98-107 mmol/L Carbon Dioxide Level 25 20-31 mmol/L Anion Gap 9 5-15 Blood Urea Nitrogen 18 9-23 mg/dL BUN/Creatinine Ratio 17.8 10.0-20.0 Serum Glucose 229 H 74-106 mg/dL Calcium Level 9.1 8.7-10.4 mg/dL Total Bilirubin 0.6 0.2-1.0 mg/dL Aspartate Amino Transferase (AST) 90 H 13-40 U/L Alanine Aminotransferase (ALT) 48 H 7-40 U/L Alkaline Phosphatase 212 H 46-116 U/L Total Protein 7.9 5.7-8.2 g/dL Albumin 4.1 3.2-4.8 g/dL Troponin I High Sensitivity 6 </=34 ng/L Urine Color Light-yellow Yellow Urine Clarity Clear Clear Urine pH 6.0 5.0-9.0 Urine Specific [place] 1.035 1.001-1.035 Urine Protein Trace H Negative Urine Ketones Negative Negative Urine Blood Trace H Negative /uL Urine Nitrite Negative Negative Urine Bilirubin Negative Negative Urine Urobilinogen Normal Negative mg/dL Urine Leukocyte Esterase Negative Negative /uL Urine RBC 1 0 - 4 /hpf Urine Microscopic WBC < 1 0-5 /HPF Urine Squamous Epithelial Cells Few <5 /hpf Urine Bacteria None seen None Seen /hpf Urine Mucus Few None Seen Urine Glucose Normal Normal mg/dL Test 05/23/25 13:59 Range/Units D-Dimer, Quantitative 0.99 H 0.0-0.49 mg/L FEU B-Type Natriuretic Peptide 130.94 0-100 pg/mL Thyroid Stimulating Hormone (TSH) 0.73 0.55-4.78 uIU/mL Imaging: CT abdomen pelvis IMPRESSION: No pulmonary embolus. Spiculated left upper lobe pulmonary nodule. The diagnosis of exclusion is malignancy. Suggest either further assessment with PET/ CT or tissue sampling. No clear cause for abdominal pain. Abdominal ultrasound IMPRESSION: No hepatic mass is identified. No ascites identified. Assessment: Liver cancer Liver cirrhosis History of alcohol use COPD Abdominal pain Plan: Discussed with Dr. Ardon Obtain medical records Pain management per hospital team Recommend outpatient oncology follow-up Discussed plan with patient and RN Thank you for this consult Date of Service: May 26, 2025 Billing Provider: TAHIR HERRMANN Common Visit Codes: CONSULT ONLY Consultation Codes: [id number] CONSULT <60MIN TAHIR HERRMANN May 26, 2025 13:18
[2025-05-27] VITALS (7 sets, daily range): BP systolic 139–164; BP diastolic 90–103; PULSE 69–102; RESP 14–81; TEMP 97.9–98.4; O2SAT 93–95
--- NOTE | 2025-05-27 11:45 | DVHPN2 ---
Reviewed: Care Plan, H&P, Labs, Medications, Previous Orders, Radiology Changes from previous H/P or p: No Changes General: Per HPI Eyes: No Pain, No Vision change, No Conjunctivae inflammation, No Eyelid inflammation, No Other, No Redness ENT: No Ear pain, No Ear discharge, No Nose pain, No Nose discharge, No Nose congestion, No Mouth pain, No Mouth swelling, No Throat pain, No Throat swelling, No Other Cardiovascular: Chest Pain; No Palpitations, No Orthopnea, No Paroxysmal Noc. Dyspnea, No Edema, No Lt Headedness, No Other Respiratory: Cough; No Dry; Shortness of breath, SOB with excertion; No Wheezing, No Hemoptysis, No Pleuritic Pain, No Sputum, No Other Gastrointestinal: No Nausea, No Vomiting, No Abdominal Pain, No Diarrhea, No Constipation, No Melena, No Hematochezia, No Other Genitourinary: No Dysuria, No Frequency, No Incontinence, No Hematuria, No Retention, No Other Musculoskeletal: No other, No neck pain, No shoulder pain, No arm pain, No back pain, No hand pain, No leg pain, No foot pain Skin: No Rash, No Lesions, No Jaundice, No Bruising, No Other Objective Vitals Vital Signs Date Time Temp Pulse Resp B/P (MAP) Pulse Ox O2 Delivery O2 Flow Rate FiO2 05/27/25 10:19 93 Room Air* 0 21 05/27/25 09:00 98.4 76 22 164/103 (123) 98.4 Intake/Output Intake and Output 05/27/25 07:00 Intake Total 1700 ml Balance 1700 ml Intake Oral 1400 ml IV Total 300 ml # Voids 8 General Appearance: Alert, Oriented X3, Cooperative Cardiovascular: Regular rate, Normal S1 Neuro: Normal gait, Normal speech Medications Current Medications Medications Dose Ordered Sig/Jatinder Route Start Time Stop Time Status Last Admin Dose Admin Albuterol 2.5 mg Q4HPRN PRN NEB 05/23/25 17:00 05/26/25 22:51 2.5 MG Ipratropium [place] 0.5 mg Q4HPRN PRN NEB 05/23/25 17:00 05/26/25 22:51 0.5 MG Methylprednisolone Sodium Succinate 40 mg Q8HR IV 05/23/25 22:00 05/27/25 05:35 40 MG Temazepam 15 mg QHSP PRN PO 05/23/25 17:00 05/26/25 21:24 15 MG Ondansetron HCl 4 mg Q4HP PRN IV 05/23/25 17:00 05/23/25 19:18 4 MG Docusate Sodium 100 mg BIDPRN PRN PO 05/23/25 17:00 Enoxaparin Sodium 40 mg DAILY SC 05/24/25 10:00 05/27/25 08:50 40 MG Nitroglycerin 0.4 mg Q5MINP PRN SL 05/23/25 17:00 Pantoprazole Sodium 40 mg DAILY IV 05/24/25 10:00 05/27/25 08:50 40 MG Ceftriaxone Sodium 50 ml @ 100 mls/hr DAILY@09 IV 05/24/25 09:00 05/27/25 08:50 100 MLS/HR Azithromycin 250 ml @ 125 mls/hr DAILY IV 05/24/25 10:00 05/27/25 08:51 125 MLS/HR Hydralazine HCl 10 mg Q6HP PRN IV 05/23/25 22:30 05/26/25 18:18 10 MG Hydromorphone HCl 2 mg Q4HPRN PRN IV 05/25/25 15:45 05/27/25 08:51 2 MG Laboratory Results Laboratory Tests 05/24/25 03:09 05/26/25 05:45 Urinalysis Test 05/23/25 17:57 Urine Color Light-yellow (Yellow) Urine Clarity Clear (Clear) Urine pH 6.0 (5.0-9.0) Urine Specific [place] 1.035 (1.001-1.035) Urine Protein Trace (Negative) H Urine Ketones Negative (Negative) Urine Blood Trace /uL (Negative) H Urine Nitrite Negative (Negative) Urine Bilirubin Negative (Negative) Urine Urobilinogen Normal mg/dL (Negative) Urine Leukocyte Esterase Negative /uL (Negative) Urine RBC 1 /hpf (0 - 4) Urine Microscopic WBC < 1 /HPF (0-5) Urine Squamous Epithelial Cells Few /hpf (<5) Urine Bacteria None seen /hpf (None Seen) Urine Mucus Few (None Seen) Urine Glucose Normal mg/dL (Normal) Labs and/or images reviewed: Labs reviewed by me, Image(s) reviewed by me Assessment/Plan Assessment/Plan Covering for Dr. Victoria Acute hypoxic respiratory failure: Oxygen by nasal cannula Acute COPD Exacerbation, ejection fraction 60% Possible community-acquired pneumonia Gram-positive versus Gram-negative: Rocephin azithromycin albuterol Atrovent Acute mild right pleural effusion PE ruled out Cirrhosis and recently diagnosed liver cancer Acute Left-sided abdominal pain Hypertension TSH normal Anxiety: Xanax Hypertension Thyroid disease History of alcohol abuse Time spent 50 minutes Advanced care planning time 20 minutes Patient is full code Plan discussed with: Patient Date of Service: May 27, 2025 Billing Provider: GUILLE HERRMANN MD Common Visit Codes: [id number] INP/OBS CARE(HIGH) GUILLE HERRMANN MD May 27, 2025 11:45
[2025-05-27] MEDS ORDERED: ALPR1TAB2 PO (11:46)
[2025-05-27] MEDS ORDERED: AZIT500T66 PO (11:46)
[2025-05-27] MEDS ORDERED: HYDR2TAB58 PO (11:46)
--- NOTE | 2025-05-27 11:52 | DVHDS2 ---
Discharge Summary Date of Admission May 23, 2025 at 16:57 Date of Discharge: May 27, 2025 Admitting Diagnosis Abdominal pain nausea Wounds: None Labs/Diagnostic Data: Laboratory Results Test 05/26/25 05:45 05/24/25 03:09 05/23/25 19:14 05/23/25 17:57 White Blood Count 13.1 10^3/uL (4.4-10.8) Red Blood Count 4.42 10^6/uL (4.0-5.20) Hemoglobin 13.6 g/dL (12.2-16.2) Hematocrit 41.2 % (36.0-46.0) Mean Corpuscular Volume 93.2 fL (80.0-100.0) Mean Corpuscular Hemoglobin 30.7 pg (28.0-32.0) Mean Corpuscular Hemoglobin Concent 33.0 g/dL (32.0-36.0) Red Cell Distribution Width 14.4 % (11.8-14.3) Platelet Count 140 10^3/uL (140-450) Mean Platelet Volume 10.1 fL (6.9-10.8) Neutrophils (%) (Auto) 91.1 % (37.0-80.0) Lymphocytes (%) (Auto) 4.9 % (10.0-50.0) Monocytes (%) (Auto) 4.0 % (0.0-12.0) Eosinophils (%) (Auto) 0.0 % (0.0-7.0) Basophils (%) (Auto) 0.0 % (0.0-2.0) Neutrophils # (Auto) 11.9 10 ^3/uL (1.6-8.6) Lymphocytes # (Auto) 0.6 10 ^3/uL (0.4-5.4) Monocytes # (Auto) 0.5 10 ^3/uL (0-1.3) Eosinophils # (Auto) 0 10 ^3/uL (0-0.8) Basophils # (Auto) 0 10 ^3/uL (0-0.2) Nucleated Red Blood Cells 0.1 % Creatinine 0.81 mg/dL (0.550-1.02) Glomerular Filtration Rate Calc 80 mL/min (>90) Sodium Level 143 mmol/L (136-145) Potassium Level 4.6 mmol/L (3.5-5.1) Chloride Level 109 mmol/L (98-107) Carbon Dioxide Level 25 mmol/L (20-31) Anion Gap 9 (5-15) Blood Urea Nitrogen 18 mg/dL (9-23) BUN/Creatinine Ratio 17.8 (10.0-20.0) Serum Glucose 229 mg/dL (74-106) Calcium Level 9.1 mg/dL (8.7-10.4) Total Bilirubin 0.6 mg/dL (0.2-1.0) Aspartate Amino Transferase (AST) 90 U/L (13-40) Alanine Aminotransferase (ALT) 48 U/L (7-40) Alkaline Phosphatase 212 U/L (46-116) Total Protein 7.9 g/dL (5.7-8.2) Albumin 4.1 g/dL (3.2-4.8) Troponin I High Sensitivity 6 ng/L (</=34) Urine Color Light-yellow (Yellow) Urine Clarity Clear (Clear) Urine pH 6.0 (5.0-9.0) Urine Specific [place] 1.035 (1.001-1.035) Urine Protein Trace (Negative) Urine Ketones Negative (Negative) Urine Blood Trace /uL (Negative) Urine Nitrite Negative (Negative) Urine Bilirubin Negative (Negative) Urine Urobilinogen Normal mg/dL (Negative) Urine Leukocyte Esterase Negative /uL (Negative) Urine RBC 1 /hpf (0 - 4) Urine Microscopic WBC < 1 /HPF (0-5) Urine Squamous Epithelial Cells Few /hpf (<5) Urine Bacteria None seen /hpf (None Seen) Urine Mucus Few (None Seen) Urine Glucose Normal mg/dL (Normal) Test 05/23/25 13:59 D-Dimer, Quantitative 0.99 mg/L FEU (0.0-0.49) B-Type Natriuretic Peptide 130.94 pg/mL (0-100) Thyroid Stimulating Hormone (TSH) 0.73 uIU/mL (0.55-4.78) Other Laboratory Tests 05/26/25 05:45 05/24/25 03:09 Brief Hx & Hospital Course: 65-year-old female with a history of cirrhosis of liver liver cancer hypertension came in for shortness of breaths and abdominal pain nausea COPD exacerbation treated with albuterol Atrovent possible came negative versus Gram- positive pneumonia treated with Rocephin azithromycin albuterol Atrovent PE ruled out GI consult for possible liver cancer advised outpatient follow up with the Oncology patient feels better and being discharged home on azithromycin for pneumonia Dilaudid for the pain and Xanax for anxiety she was advised to follow up with the [facility] or [facility] for liver cancer General condition 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 Zohra Ardon Operations or Procedures CT abdomen pelvis without contrast Condition at Discharge: Fair Final Diagnosis/Problems List Acute hypoxic respiratory failure: Oxygen by nasal cannula Acute COPD Exacerbation, ejection fraction 60% Possible community-acquired pneumonia Gram-positive versus Gram-negative: Rocephin azithromycin albuterol Atrovent Acute mild right pleural effusion PE ruled out Cirrhosis and recently diagnosed liver cancer Acute Left-sided abdominal pain Hypertension TSH normal Anxiety: Xanax Hypertension Thyroid disease History of alcohol abuse Discharge Disposition: Home Discharge Instruct/Medications Diet: Regular Activity: Light activity Follow Up/Referral: Follow up with the primary Dr in one week Follow up with the [facility] or [facility] for treatment of the liver cancer Medications: Dilaudid Xanax Azithromycin transmitted to pharmacy Scheduled Azithromycin (Azithromycin), 1 TAB PO DAILY Scheduled PRN Alprazolam (Xanax), 1 TAB PO BID PRN Hydromorphone Hcl (Dilaudid), 1 TAB PO TID PRN 35 (Time taken for discharge summary 35 minutes) Discharge Statement: "Patient was advised to return to the ER or call 911 if any headaches, dizziness, shortness of breath, chest pain, abdominal pain, bleeding, fevers, or worsening of medical condition. Patient was counseled about treatment plan, medications, possible side effects, patientverbalized understanding. All questions were answered to the best of my ability. This discharge took greater then 30 minutes in planning, reviewing documentation, counseling the patient, and discussing with other team members." ASSESSMENT ASSESSMENT Hospital Course Uneventful Assessment Acute hypoxic respiratory failure: Oxygen by nasal cannula Acute COPD Exacerbation, ejection fraction 60% Possible community-acquired pneumonia Gram-positive versus Gram-negative: Rocephin azithromycin albuterol Atrovent Acute mild right pleural effusion PE ruled out Cirrhosis and recently diagnosed liver cancer Acute Left-sided abdominal pain Hypertension TSH normal Anxiety: Xanax Hypertension Thyroid disease History of alcohol abuse Date of Service: May 27, 2025 Billing Provider: GUILLE HERRMANN MD Common Visit Codes: [id number] DISCH DAY >30min GUILLE HERRMANN MD May 27, 2025 11:52
--- NOTE | 2025-05-27 12:02 | ECG ---
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
--- NOTE | 2025-05-27 12:55 | DVHPN2 ---
Subjective No new complaints Patient is being discharged home today Reviewed: Care Plan, H&P, Labs, Medications, Previous Orders, Radiology Changes from previous H/P or p: No Changes General: Per HPI Respiratory: Cough, Shortness of breath, SOB with excertion Gastrointestinal: No Nausea, No Vomiting, No Abdominal Pain, No Diarrhea, No Constipation, No Melena, No Hematochezia, No Other Genitourinary: Hematuria Musculoskeletal: other Objective Vitals Vital Signs Date Time Temp Pulse Resp B/P (MAP) Pulse Ox O2 Delivery O2 Flow Rate FiO2 05/27/25 12:42 87 150/100 (117) 05/27/25 11:40 20 05/27/25 10:19 93 Room Air* 0 21 05/27/25 09:00 98.4 98.4 Intake/Output Intake and Output 05/27/25 07:00 Intake Total 1700 ml Balance 1700 ml Intake Oral 1400 ml IV Total 300 ml # Voids 8 Exam General: NAD, AAOX3 Chest: lung dykes clear to auscultation Heart: RRR, no murmur Abdomen: non-distended, no tenderness to palpation, +BS General Appearance: Alert, Oriented X3, Cooperative Neuro: Normal gait, Normal speech Medications Current Medications Medications Dose Ordered Sig/Jatinder Route Start Time Stop Time Status Last Admin Dose Admin Albuterol 2.5 mg Q4HPRN PRN NEB 05/23/25 17:00 05/26/25 22:51 2.5 MG Ipratropium [place] 0.5 mg Q4HPRN PRN NEB 05/23/25 17:00 05/26/25 22:51 0.5 MG Methylprednisolone Sodium Succinate 40 mg Q8HR IV 05/23/25 22:00 05/27/25 05:35 40 MG Temazepam 15 mg QHSP PRN PO 05/23/25 17:00 05/26/25 21:24 15 MG Ondansetron HCl 4 mg Q4HP PRN IV 05/23/25 17:00 05/23/25 19:18 4 MG Docusate Sodium 100 mg BIDPRN PRN PO 05/23/25 17:00 Enoxaparin Sodium 40 mg DAILY SC 05/24/25 10:00 05/27/25 08:50 40 MG Nitroglycerin 0.4 mg Q5MINP PRN SL 05/23/25 17:00 Pantoprazole Sodium 40 mg DAILY IV 05/24/25 10:00 05/27/25 08:50 40 MG Ceftriaxone Sodium 50 ml @ 100 mls/hr DAILY@09 IV 05/24/25 09:00 05/27/25 08:50 100 MLS/HR Azithromycin 250 ml @ 125 mls/hr DAILY IV 05/24/25 10:00 05/27/25 08:51 125 MLS/HR Hydralazine HCl 10 mg Q6HP PRN IV 05/23/25 22:30 05/27/25 11:50 10 MG Hydromorphone HCl 2 mg Q4HPRN PRN IV 05/25/25 15:45 05/27/25 08:51 2 MG Laboratory Results Laboratory Tests 05/24/25 03:09 05/26/25 05:45 Urinalysis Test 05/23/25 17:57 Urine Color Light-yellow (Yellow) Urine Clarity Clear (Clear) Urine pH 6.0 (5.0-9.0) Urine Specific [place] 1.035 (1.001-1.035) Urine Protein Trace (Negative) H Urine Ketones Negative (Negative) Urine Blood Trace /uL (Negative) H Urine Nitrite Negative (Negative) Urine Bilirubin Negative (Negative) Urine Urobilinogen Normal mg/dL (Negative) Urine Leukocyte Esterase Negative /uL (Negative) Urine RBC 1 /hpf (0 - 4) Urine Microscopic WBC < 1 /HPF (0-5) Urine Squamous Epithelial Cells Few /hpf (<5) Urine Bacteria None seen /hpf (None Seen) Urine Mucus Few (None Seen) Urine Glucose Normal mg/dL (Normal) Labs and/or images reviewed: Labs reviewed by me, Image(s) reviewed by me Assessment/Plan Assessment/Plan Liver cancer Liver cirrhosis History of alcohol use COPD Abdominal pain Plan: Discussed with Dr. Ardon Outpatient GI follow-up recommended Also discussed extensively outpatient oncology follow-up Patient understands and agrees Plan discussed with: Patient, Other (RN) Date of Service: May 27, 2025 Billing Provider: TAHIR HERRMANN Common Visit Codes: [id number] INP/OBS CARE(HIGH) TAHIR HERRMANN May 27, 2025 12:55
== END 2025-05-27 16:49 | disposition home or self-care (01) | DRG 177 ==
LOC: EDBD 11:36 → ER 11:36 → OVERFLOW 16:57 → EAST 05-24 22:34
PROVIDERS: ADMIT Family Medicine; ATTEND Family Medicine
DX: J15.69 Pneumonia due to other Gram-negative bacteria (principal); J96.01 Acute respiratory failure with hypoxia; C22.9 Malignant neoplasm of liver, not specified as primary or secondary; J44.0 Chronic obstructive pulmonary disease with (acute) lower respiratory infection; J90 Pleural effusion, not elsewhere classified; J15.9 Unspecified bacterial pneumonia; K70.30 Alcoholic cirrhosis of liver without ascites; I10 Essential (primary) hypertension; F10.21 Alcohol dependence, in remission; J44.1 Chronic obstructive pulmonary disease with (acute) exacerbation; G89.3 Neoplasm related pain (acute) (chronic); F17.200 Nicotine dependence, unspecified, uncomplicated; E07.9 Disorder of thyroid, unspecified; F41.9 Anxiety disorder, unspecified; Z79.899 Other long term (current) drug therapy; Z80.1 Family history of malignant neoplasm of trachea, bronchus and lung; Y90.9 Presence of alcohol in blood, level not specified; R10.9 Unspecified abdominal pain
CPT/HCPCS: 36415; 71045; 71260; 74177; 76705; 80048; 80053; 81001; 82565; 83880; 84443; 84484; 85025; 85049; 85379; 93005; 93306; 94640; 99291; G0378; J2405; J2470